=== PATIENT | female | born 1985 | race African-American/Black ===

== ENCOUNTER 2016-11-06 16:19 | Emergency (ER) ==
[2016-11-06 16:30] VITALS: BP 145/88
[2016-11-06] MEDS ORDERED: TORADOL IM ONE (17:30)
--- NOTE | 2016-11-06 17:32 | PROVIDER DOCUMENTATION ---
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 Denies deformity or prearrival treatment. Huts wors with walking. aching, non- radiating. Review of Systems - Adult - REVIEW OF SYSTEMS - ADULT Constitutional: reports: no symptoms reported Eyes: reports: no symptoms reported Ears, Nose, Mouth & Throat: reports: no symptoms reported Cardiovascular: reports: no symptoms reported Respiratory: reports: no symptoms reported Gastrointestinal: reports: no symptoms reported Genitourinary: reports: no symptoms reported Musculoskeletal: reports: no symptoms reported Integumentary: reports: no symptoms reported Neurological: reports: no symptoms reported Psychiatric: reports: no symptoms reported Endocrine: reports: no symptoms reported Hematologic/Lymphatic: reports: no symptoms reported Allergic/Immunologic: reports: no symptoms reported All Other Systems: Reviewed and Negative Past History - Adult - PAST MEDICAL HISTORY-ADULT Review of Records: reports: Old Records Reviewed, Nursing Assessment Review, Medications Reviewed Major Childhood Illnesses: reports: denies history Cardiovascular: reports: HTN Respiratory: reports: denies history Gastrointestinal: reports: denies history Obstetrical/Gynecological: reports: denies history Genitourinary: reports: denies history Musculoskeletal: reports: denies history Neurological: reports: denies history Endocrine/Immune: reports: Diabetes Other Conditions: reports: denies history - FAMILY HISTORY Family History: reviewed, not pertinent Physical Exam-Injury Related - Physical Exam-Injury Related Initial Vital Signs Reviewed: Yes General Appearance: appears well, alert, no apparent distress Eyes: PERRL/EOMI, pink conjunctivae Head, Ears, Nose, Mouth & Throat: normocephalic/atraumatic, moist mucous membranes Neck: supple Respiratory: chest non-tender, lungs clear, normal breath sounds, no pleuratic chest pain, no respiratory distress, no accessory muscle use Cardiovascular: normal peripheral pulses, regular rate, rhythm Peripheral Pulses: dorsalis-pedis (R): 2+, dorsalis-pedis (L): 2+ Extremity: normal range of motion, normal gait, normal inspection, other (left pinky toe ttp) Integumentary: normal color, warm/dry, blanching Neurologic: grossly normal, no motor/sensory deficits Progress - PLAN OF CARE/RESULTS Progress/Plan/Lab Results: Vital Signs Temp Pulse Resp BP Pulse Ox 11/06/16 16:27 97.2 F L 75 16 145/88 99 No Known Allergies Allergy (Verified 11/06/16 16:29) Synthroid 1 tab PO DAILY 07/11/14 Methocarbamol [Robaxin] 500 mg PO BID #14 tablet 11/06/16 Naproxen 500 mg PO BID PRN #30 tablet 11/06/16 Orders Category Date Time Status Post-Op Shoe DIRECTED Care 11/06/16 17:30 Active TOE(S)-LEFT [RAD] Stat Exams 11/06/16 16:31 Taken Ketorolac [Toradol] Med 11/06/16 17:30 Discontinued 30 mg IM NOW ONE - XRAY 1 XRAY: Left XRAY Study: Foot Impression: Normal (NAD ER prelim) Procedures - SPLINTING Left Lower Extremity Pre-Procedure Neurovascular Exam: Intact Pre-Fabricated Splint: Other (post op shoe) Applied By: ED Nurse Departure - Departure Time of Disposition Order: 17:31 DIAGNOSIS: Toe pain, left Disposition: HOME 01 Certified Medical Emergency: Emergent Condition: Stable Additional Instructions: Follow up with Dr. Mcnulty if you continue having pain ED Follow Up Instructions: You have been treated by a care provider in the Emergency Department. These instructions are being provided to you so you can have an understanding of how to care for yourself upon discharge. Upon discharge from the Emergency Department, you are responsible for making arrangements for follow-up care by a physician of your choice. Take all prescribed medications as directed. Return to the Emergency Department immediately for any new or worsening symptoms. You may call the Physician Referral phone number at [phone] to obtain a list of Physicians who are taking new patients. Prescriptions: Naproxen 500 mg PO BID PRN #30 tablet PRN Reason: Pain Methocarbamol [Robaxin] 500 mg PO BID #14 tablet Referrals: None,PCP [Primary Care Provider] - Bhupendra Mcnulty MD [STAFF PHYSICIAN] - Attestation - Physician/ MARY Attestation Patient care was provided by Advanced Practice Provider:: Yes Advanced Practice Provider:: Gisela Miranda Advanced Practice Provider documentation review:: The Mid-level provider documentation, treatment plan and medical decision making was reviewed by the physician who agrees with all treatment and medical decision making by the MLP.
--- NOTE | 2016-11-06 17:50 | Diag Imaging Result Document ---
PROCEDURE NAME: TOE(S)-LEFT - 11/06/2016 LEFT PINKY TOE, 3 VIEWS: COMPARISON: None. FINDINGS: There is mild widening of the proximal interphalangeal joint of the pinky toe. The distal portion of the toe is also minimally subluxed laterally. No fracture visible. IMPRESSION: Mild disruption of the proximal interphalangeal joint of the pinky toe.
== END 2016-11-06 18:51 | disposition home or self-care (01) ==
LOC: P.ED 16:19
DX: M79.675 Pain in left toe(s) (principal); I10 Essential (primary) hypertension; E11.9 Type 2 diabetes mellitus without complications; W22.8XXA Striking against or struck by other objects, initial encounter; Z79.899 Other long term (current) drug therapy
CPT/HCPCS: 73660; J1885